=== PATIENT | female | born 2000 | race Caucasian/White ===

== ENCOUNTER 2020-08-28 05:41 | Emergency (ER) | payer OTHER ==
--- NOTE | 2020-08-28 05:49 | ED ---
Recheck HPI - General Stated Complaint: exposure, [facility] Time Seen by Provider: 08/28/20 05:46 Source: RN notes reviewed, old records reviewed Mode of arrival: EMS Limitations: no limitations - History of Present Illness Initial Comments: This is a 20-year-old female DF for evaluation patient Dese for evaluation regards to needlestick or body fluid exposure. Patient did have patient spit in her left eye this patient was a coronavirus positive patient was unintentional. Patient himself is of course a symptomatic has no complaints no eye pain or any other changes. Patient has no prior known diagnosis of coronavirus MD Complaint: other (Patient being checked for needlestick exposure body fluid exposure) -: hour(s) Returns Today for: other (Body fluid exposure) Symptoms Since Prior Visit: no new symptoms Context: other (Patient pain saliva from known coronavirus positive patient to her eye) Associated Symptoms: none Review of Systems ROS Statement: Those systems with pertinent positive or pertinent negative responses have been documented in the HPI. ROS Other: All systems not noted in ROS Statement are negative. General Exam General appearance: alert, in no apparent distress Head exam: Present: atraumatic, normocephalic, normal inspection Eye exam: Present: normal appearance, PERRL, EOMI ENT exam: Present: normal exam, mucous membranes moist Extremities exam: Present: normal inspection, full ROM, normal capillary refill. Absent: tenderness, pedal edema, joint swelling Back exam: Present: normal inspection Neurological exam: Present: alert, oriented X3, CN II-XII intact Psychiatric exam: Present: normal affect, normal mood Skin exam: Present: warm, dry, intact, normal color. Absent: rash Course - Reevaluation(s) Reevaluation #1: 08/28/20 05:47 Medical records reviewed Reevaluation #2: 08/28/20 05:47 Patient remains asymptomatic Reevaluation #3: 08/28/20 05:47 Patient advised against post exposure prophylaxis Medical Decision Making - Medical Decision Making 20-year-old female to the ER for evaluation regarding saliva exposure, coronavirus. Patient asymptomatic can be discharged home return to work Disposition Clinical Impression: Exposure to body fluid Disposition: HOME SELF-CARE Condition: Good Instructions (If sedation given, give patient instructions): Postexposure Prophylaxis (ED) Is patient prescribed a controlled substance at d/c from ED?: No Referrals: None,Stated [Primary Care Provider] - 1-2 days
[2020-08-28 06:03] VITALS: BP 120/63; PULSE 80; RESP 18; TEMP 98
== END 2020-08-28 06:05 | disposition home or self-care (01) ==
LOC: EC 05:41
DX: Z77.21 Contact with and (suspected) exposure to potentially hazardous body fluids (principal)
CPT/HCPCS: 99284

== ENCOUNTER → 2021-07-05 | Outpatient (CLI) | payer BC | END | disposition home or self-care (01) | LOC: LABWHC1 13:25 | PROVIDERS: ATTEND Internal Medicine | DX: R06.02 Shortness of breath (principal) | CPT/HCPCS: 36415; 85379 ==